=== PATIENT | female | born 1990 | race Caucasian/White ===

== ENCOUNTER → 2022-03-25 | Outpatient (CLI) | payer BC, OTHER ==
[~2022-03-25] MED LIST: ACHD5005 PO; AMPI500C9 PO; BREA1EAC5 MC; DCS100C PO; DOCU100C37 PO; FERR325T18 PO; FRS325T PO; IBP600T1 PO; IBUP-1773 PO; LEVO125T6 PO; LVT.088T PO; OXYC-12 PO; PREN1TAB39 PO; breast pump
--- NOTE | 2022-03-25 13:15 | Diagnostic Imaging Report ---
PROCEDURE: US Thyroid. TECHNIQUE: Multiple Real-time grayscale images were obtained of the thyroid in various projections. INDICATION: Nontoxic goiter. COMPARISON: Correlation is made to the prior study of 06/30/2012. FINDINGS: Both lobes of the thyroid are enlarged. The right lobe measures 6.0 x 1.7 x 2.2 cm and the left lobe measures 6.0 x 1.5 x 2.2 cm. The isthmus is 5 mm in thickness. Both lobes again show marked parenchymal heterogeneity. No discrete thyroid mass is detected. IMPRESSION: Thyromegaly and thyroid heterogeneity. No discrete mass is detected. Dictated by: Dictated on workstation # [id number]
== END ==
LOC: RAD 11:15
PROVIDERS: ATTEND Obstetrics & Gynecology
DX: E01.0 Iodine-deficiency related diffuse (endemic) goiter (principal)
CPT/HCPCS: 76536

== ENCOUNTER → 2022-04-16 | Outpatient (CLI) | payer OTHER ==
--- NOTE | 2022-04-17 12:13 | Diagnostic Imaging Report ---
Indication: Goiter. Patient was administered 200 uCi of I-123 orally and a 4 hour and 24-hour thyroid uptake study as well as a thyroid scan was performed. 4 hour thyroid uptake is 16.4%. 24-hour thyroid uptake is 32.8%. Normal 24-hour uptake is approximately 10-30%. Thyroid scan shows homogeneous uptake of activity throughout both lobes. No hot or cold nodules are seen. IMPRESSION: 1. Unremarkable thyroid scan. 2. Minimal elevation of 24-hour thyroid uptake, as described. Dictated by: Dictated on workstation # [id number]
== END ==
LOC: CARD 10:56
PROVIDERS: ATTEND Obstetrics & Gynecology
DX: E04.9 Nontoxic goiter, unspecified (principal)
CPT/HCPCS: 78014